=== PATIENT | female | born 2005 | race Caucasian/White ===

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

== ENCOUNTER → 2023-01-01 | Outpatient (REF) | payer BC | LOC: M LABDRWAD 16:47 | PROVIDERS: ATTEND Nurse Practitioner Adult Health | DX: R56.9 Unspecified convulsions (principal) ==

== ENCOUNTER → 2025-01-17 | Outpatient (REF) | payer BC ==
[2025-01-17 19:02] LABS: BASO # 0.0 10^3/uL (0.0-0.2); BASO % 0.5 % (0.0-1.0); EOS # 0.1 10^3/uL (0.0-0.5); EOS % 2.3 % (0.0-3.0); LYMPH # 1.5 10^3/uL (1.5-5.0); LYMPH % 24.5 % (24.0-44.0); MONO # 0.7 10^3/uL (0.0-0.8); MONO % 11.2 % (2.0-8.0); NEUTROPHILS # 3.7 10^3/uL (1.5-8.5); NEUTROPHILS % 61.0 % (36.0-66.0); PLATELET COUNT, AUTOMATED 260 10^3/uL (150-450)
[2025-01-17 19:33] LABS: ALT/SGPT 12 U/L (7.0-40); AST/SGOT 19 U/L (<34); CALCIUM LEVEL 9.4 MG/DL (8.5-10.1); CARBON DIOXIDE LEVEL 28 MMOL/L (20-31); CHLORIDE LEVEL 102 MMOL/L (98-107); CREATININE FOR GFR 0.61 MG/DL (0.55-1.30); GLOMERULAR FILTRATION RATE > 90.0 (>60); POTASSIUM SERUM 4.3 MMOL/L (3.5-5.1); SODIUM LEVEL 140 MMOL/L (136-145)
== END ==
LOC: M LABDRWAD 16:54
PROVIDERS: ATTEND Nurse Practitioner Adult Health
DX: G40.901 Epilepsy, unspecified, not intractable, with status epilepticus (principal)

== ENCOUNTER → 2025-05-29 | Outpatient (REF) | payer BC | LOC: M LABDRWAD 17:51 | PROVIDERS: ATTEND Nurse Practitioner Adult Health | DX: G40.901 Epilepsy, unspecified, not intractable, with status epilepticus (principal) ==